=== PATIENT | male | born 1955 | race Caucasian/White ===

== ENCOUNTER → 2022-02-22 09:43 | Outpatient (CLI) | payer BC, SELFPAY ==
--- NOTE | 2022-02-22 | CA_ITS ---
APPROVED REPORT EXAM: Comprehensive 2D, Doppler, and color-flow Echocardiogram Vp Data: MARK Vasquez, RVS Ht: 6 ft 2 in Wt: 266lbs BSA: 2.45 BP: 140/90 mmHg Indications: Murmur, Hx- pericardial window 30years ago, DM, HTN 2D Dimensions IVSd 1.14 cm M: 0.6-1.2 LVEF (Visual) 54.00 % PWd 1.14 cm M: 0.6 - 1.2 LA Volume 77.80 mL LVDd 4.80 cm M: 4.2 - 5.9 LA Volume Index 31.75 mL/m2 (M/F) 16-34 LVDs 3.46 cm M: 2.5 - 4.0 Aortic Root 3.48 cm M: 3.1 - 3.7 Left Atrium 4.53 cm M: 3.0 - 4.0 LVOT 2.05 cm (M/F) 1.5-2.5 M-Mode Dimensions RVDd 3.64 cm (0.9-2.6) LA Diam 4.61 cm (1.9-4.0) LVDd 5.12 cm (3.5-5.7) Ao Diam 3.74 cm (2.0-3.7) LVDs 3.61 cm (3.5-5.7) IVSd 1.06 cm (0.6-1.1) PWd 0.99 cm (0.6-1.1) EF (Teich) 56.10% FS 29.50% EDV (Teich) 124.90 mL ESV (Teich) 54.80 mL LV Diastology E Decel Time 213.00 (160-240 msec) E/A Ratio 0.93 Aortic Valve LVOT Max 128.00 (70-110 cm/s) LVOT VTI 27.23 cm AoV Peak Vadim. 271.00 (50-130 cm/s) AO Peak GR. 29.60 mmHg AO Mean GR. 15.00 (<5 mmHg) AO VTI 51.12 (18-25 cm) ASTON (VTI) 1.76 (2.5-4.5 cm2) Mitral Valve MV A Velocity 114.00 (40-130 cm/s) E/A Ratio 0.93 MV Decel. Time 213.00 (160-240 ms) MV Mean Gr. 3.10 (<2mmHg) MV PHT 63.00 ms Pulmonary Valve PV Peak Velocity 87.00 (50-150 cm/s) WA End VMAX 183.00 cm/s Tricuspid Valve TR P. Velocity 144.00 cm/s Left Ventricle Left atrium is mildly enlarged, left ventricle is normal size mild concentric left ventricular hypertrophy, estimated ejection fraction 55% with no regional wall motion abnormality, diastolic parameters are inconclusive. Right Ventricle Right atrium and right ventricle are normal size and contractility. Aortic Valve Aortic valve is thickened and calcified with restriction in the leaflet mobility, the mean gradient across aortic valve is 17 mmHg, valve area is 1.6 cm, represents mild aortic stenosis, there is no significant aortic insufficiency. Mitral Valve Mitral valve grossly normal, there is trace mitral regurgitation. Tricuspid Valve Tricuspid valve grossly normal, there is trace tricuspid regurgitation, tricuspid regurgitation jet velocity is inadequate for calculation of the right ventricular systolic pressure. Pulmonic Valve Pulmonic valve is poorly visualized. Great Vessels Aortic root is normal size. Inferior vena cava is poorly visualized Pericardium No significant pericardial effusion noted. Conclusion 1. Mildly enlarged left atrium, normal left ventricular size, mild concentric left ventricular hypertrophy, estimated ejection fraction 55% with no regional wall motion abnormality, diastolic parameters are inconclusive. 2. Thickened and calcified aortic valve with mean gradient across aortic valve of 17 mmHg, valve area is 1.6 cm??? represents mild aortic stenosis, there is no significant aortic insufficiency. 3. Trace mitral and tricuspid regurgitation. 4. No significant pericardial effusion noted. 5. Inferior vena cava is poorly visualized Electronically signed by : Manuel Castano MD 02/23/2022 06:17:14
== END ==
PROVIDERS: PCP Internal Medicine Adolescent Medicine; Visit Provider Internal Medicine Adolescent Medicine
DX: R01.1 Cardiac murmur, unspecified (principal)
CPT/HCPCS: 93306

== ENCOUNTER 2023-04-19 09:06 | Emergency (ER) | payer BC, SELFPAY ==
[2023-04-19] VITALS (9 sets, daily range): BP systolic 93–145; BP diastolic 54–82; PULSE 100–130; RESP 15–24; TEMP 37.7; O2SAT 94–98; BMI 34.0
--- NOTE | 2023-04-19 09:16 | PC.NURSE ---
POC glucose checked at BS.
[2023-04-19 09:17] LABS: Coronavirus 19, PCR Not Detected (NotDetected); Influenza A, PCR Not Detected (NotDetected); Influenza B, PCR Not Detected (NotDetected)
--- NOTE | 2023-04-19 09:17 | PC.NURSE ---
Pillow and [place] given to patient for comfort. Spouse at BS. Call campos within reach
[2023-04-19 09:18] LABS: POC Glucose,Bedside 235 (70-110)
--- NOTE | 2023-04-19 09:18 | PC.NURSE ---
Dr. Cross at BS for pt eval
--- NOTE | 2023-04-19 09:21 | CT_ITS ---
PROCEDURE INFORMATION: Exam: CT Chest Without Contrast; Diagnostic Exam date and time: 04/19/2023 10:23 AM Age: 67 years old Clinical indication: Cough and shortness of breath; Additional info: Cough, SOA, tachy TECHNIQUE: Imaging protocol: Diagnostic computed tomography of the chest without contrast. Radiation optimization: All CT scans at this facility use at least one of these dose optimization techniques: automated exposure control; mA and/or kV adjustment per patient size (includes targeted exams where dose is matched to clinical indication); or iterative reconstruction. REPORTING DATA: Count of CT and Cardiac NM exams in prior 12 months: This patient has received 0 known CTs and 0 known cardiac nuclear medicine studies in the 12 months prior to the current study. COMPARISON: CT ABDOMEN PELVIS WO CON 04/19/2023 10:23 AM FINDINGS: Lungs: Unremarkable. No consolidation. No masses. Pleural spaces: Unremarkable. No pneumothorax. No pleural effusion. Heart: Unremarkable. No cardiomegaly. No pericardial effusion. Coronary arteries: Postoperative changes from prior coronary artery bypass graft. Lymph nodes: Unremarkable. No enlarged lymph nodes. Vasculature: Unremarkable. No aortic aneurysm. Bones/joints: Sternotomy wires are intact. Soft tissues: Unremarkable. IMPRESSION: No evidence of pneumonia or interstitial lung disease.
--- NOTE | 2023-04-19 09:21 | CT_ITS ---
PROCEDURE INFORMATION: Exam: CT Abdomen And Pelvis Without Contrast Exam date and time: 04/19/2023 10:23 AM Age: 67 years old Clinical indication: Other: Bilateral flank pain; Additional info: Abd pain, no bm, flank pain b/l TECHNIQUE: Imaging protocol: Computed tomography of the abdomen and pelvis without contrast. Radiation optimization: All CT scans at this facility use at least one of these dose optimization techniques: automated exposure control; mA and/or kV adjustment per patient size (includes targeted exams where dose is matched to clinical indication); or iterative reconstruction. REPORTING DATA: Count of CT and Cardiac NM exams in prior 12 months: This patient has received 0 known CTs and 0 known cardiac nuclear medicine studies in the 12 months prior to the current study. COMPARISON: CT CHEST WO CON 04/19/2023 10:23 AM FINDINGS: Limitations: The absence of intravenous contrast limits the assessment of vascular structures, lesions and lymphadenopathy. Liver: Normal. No mass. Gallbladder and bile ducts: Cholelithiasis noted without pericholecystic fluid/stranding. Pancreas: Normal. No ductal dilation. Spleen: Normal. No splenomegaly. Adrenal glands: Normal. No mass. Kidneys and ureters: [id number] right hydroneureteronephrosis proximal to a 6 x 5 x 5 mm calculus in the proximal ureter. Stomach and bowel: Unremarkable. No obstruction. No mucosal thickening. Appendix: No evidence of appendicitis. Intraperitoneal space: Unremarkable. No free air. No significant fluid collection. Vasculature: Unremarkable. No abdominal aortic aneurysm. Lymph nodes: Unremarkable. No enlarged lymph nodes. Urinary bladder: Unremarkable as visualized. Reproductive: Unremarkable as visualized. Bones/joints: Unremarkable. No acute fracture. Soft tissues: Unremarkable. IMPRESSION: [id number] right hydroneureteronephrosis proximal to a 6 x 5 x 5 mm calculus in the proximal ureter.
--- NOTE | 2023-04-19 09:24 | HMH.EDGENADL ---
Discharge Plan Disposition Patient Disposition: Xfer Short-Term Hosp Condition: Good Prescriptions Prescriptions: No Action metformin 500 mg tablet extended release 24 hr 1,000 mg PO BID 30 Days Qty: 120 atorvastatin 40 mg tablet 40 mg PO QHS 30 Days Qty: 30 levothyroxine 100 mcg tablet 100 mcg PO DAILY 30 Days Qty: 30 glimepiride 4 mg tablet 4 mg PO BID 30 Days Qty: 30 losartan-hydrochlorothiazide 100-25 mg tablet 1 tab PO DAILY Patient Comments: TAKE 1 TABLET BY MOUTH EVERY DAY Soliqua 100/33 100 unit-33 mcg/mL insulin pen 40 unit SQ DAILY Patient Comments: ADMINISTER 60 UNITS UNDER THE SKIN EVERY MORNING Farxiga 10 mg tablet 10 mg PO DAILY Referrals Follow up/Referrals: Bjorn Ybarra MD [Primary Care Provider] - See instructions Activity Restrictions/Add. Instructions Additional Instructions/Restrictions: Please proceed directly to [facility] emergency department. Their address is [address] [place] [address]. You will be seen there in the emergency department for your obstructive stone that is causing kidney failure and infection. Clinical Impressions Clinical Impression: Right ureteral calculus, REBEKA (acute kidney injury), Sepsis Discharge ED Provider: Agata Cross General Adult HPI General Chief complaint: PAIN Stated complaint: fever, cough, body aches, elevated blood sugar Time Seen by Provider: 04/19/23 09:14 History of Present Illness HPI narrative: This patient is a 67-year-old male with history of insulin-dependent diabetes, hypertension, and hypothyroidism presented to the emergency department for evaluation with concern for fever, cough, body aches, bilateral flank pain, and hyperglycemia since Sunday. He also notes that he has not had a bowel movement. He notes his urine is decreased as well, but denies sense of urgency, retention, or other concern. He has been drinking a ton of fluids but feels like he is not staying hydrated. He is not sure when his last BM was, and he does not think he is passing gas. He admits to heart surgery, but denies history of prior abdominal surgeries. In addition to these things, patient complains that his blood sugar has been very high at home and he has had a hard time getting it under control. Related Data Home Medications Medication Instructions Recorded Confirmed atorvastatin 40 mg tablet 40 mg PO QHS 30 days #30 tabs 04/15/18 04/19/23 glimepiride 4 mg tablet 4 mg PO BID 30 days #30 tabs 04/15/18 04/19/23 levothyroxine 100 mcg tablet 100 mcg PO DAILY 30 days #30 tabs 04/15/18 04/19/23 metformin 500 mg tablet,extended 1,000 mg PO BID 30 days #120 tabs 04/15/18 04/19/23 release 24 hr dapagliflozin propanediol 10 mg 10 mg PO DAILY 02/21/22 04/19/23 tablet (Farxiga) insulin glargine 100 40 unit SQ DAILY 02/08/23 04/19/23 unit-lixisenatide 33 mcg/mL subcutaneous pen (Soliqua /33) losartan 100 1 tab PO DAILY 02/08/23 04/19/23 mg-hydrochlorothiazide 25 mg tablet Allergies Allergy/AdvReac Type Severity Reaction Status Date / Time No Known Allergies Allergy Unverified 04/19/23 09:28 [facility] Disclaimer: The information contained in this section may have been updated after the patient was seen, as this information can be updated by other users. Medical History Diabetes mellitus Hypertension Hypothyroidism Social History Smoking Status: Never smoker alcohol intake: never substance use type: denies use current occupational status: employed Travel in the last 8 weeks: None ROS Obtained: Yes All systems reviewed & no additional complaints except as documented Physical Exam General General appearance: alert and obese Comment: Tachycardic with dry mucous membranes, ill-appearing Head Head exam: atraumatic an
--- NOTE | 2023-04-19 09:44 | ECG_ITS ---
APPROVED REPORT Exam: Resting ECG HR:119 bpm ECG Measurements Heart Rate 119 AXES QRSd 110 QRS 113 QT 335 T 30 QTc 406 Conclusion Sinus tachycardia Biatiral abnormality Late r wave progression RAD ABNORMAL ECG UNCONFIRMED REPORT Electronically signed by : Bjorn Ybarra MD 04/20/2023 08:54:28
--- NOTE | 2023-04-19 09:48 | PC.NURSE ---
notified respiratory of vbg order and blood in lab
[2023-04-19 09:55] LABS: VBG Base Excess -5.5 mmol/L (-2.4-2.3); VBG HCO3 19.3 mmol/L (23-30); VBG Oxygen Saturation 92.3 % (50-70); VBG PCO2 31.9 mmol/L (35-51); VBG PO2 57.7 mmol/L (28-40); VBG Total CO2 20.3 mmol/L (23-27)
[2023-04-19 10:03] LABS: Alanine Aminotransferase 21 U/L (12-78); Albumin Level 4.1 g/dl (3.5-5.0); Albumin/Globulin Ratio 1.3 (1.1-1.8); Alkaline Phosphatase 117 U/L (38-126); Aspartate Amino Transferase 25 U/L (17-59); Basophils # 0.1 K/mm3 (0-0.2); Basophils % 0.4 % (0.1-2.0); Bilirubin,Total 0.8 mg/dl (0.2-1.3); Blood Urea Nitrogen 35 mg/dl (9-20); Carbon Dioxide 17 mmol/L (22.0-30.0); Chloride 98 mmol/L (98-107); Creatinine Clearance Estimated 39 mL/min (50-200); Eosinophils # 0.1 K/mm3 (0.0-0.4); Eosinophils % 0.6 % (0.1-12.0); Estimated Glomerular Filt Rate 20 ml/min (>60); GFR (African American) 24 ML/MIN (>60); Globulin 3.1 g/dL (1.3-3.2); Glucose 230 mg/dl (74-100); Hematocrit 48.7 % (42.0-52.0); Lipase 26 U/L (23-300); Lymphocytes # 0.5 K/mm3 (0.7-4.5); Lymphocytes % 3.4 % (10-50); Mean Corpuscular HGB Conc 32.8 g/dL (31.8-35.4); Mean Corpuscular Hemoglobin 28.3 pg (27.0-31.2); Mean Corpuscular Volume 86.2 fl (80-94); Mean Platelet Volume 8.2 fl (7.4-10.4); Monocytes # 0.4 K/mm3 (0.1-1.0); Monocytes % 3.2 % (1.7-9.3); Neutrophils # 12.8 K/mm3 (1.8-7.8); Neutrophils % 92.4 % (37.0-80.0); Platelet Count 205 K/mm3 (142-424); Red Blood Count 5.64 M/mm3 (4.60-6.20); Red Cell Distribution Width 14.7 % (11.5-17.5); Sodium 130 mmol/L (136-145); Total Protein,Serum 7.2 g/dl (6.3-8.2); White Blood Count 13.9 K/mm3 (4.8-10.8)
--- NOTE | 2023-04-19 10:03 | PC.NURSE ---
lab at bedside to obtain the 2nd blood culture
[2023-04-19 10:07] LABS: Lactic Acid 2.3 mmol/L (0.7-2.1); MANUAL DIFFERENTIAL MANUAL DIFFERENTIAL (MANUAL DIFF)
--- NOTE | 2023-04-19 10:12 | HMH.ITSTN ---
Called ER due to GFR being 20. Dr Cross said to do scans without contrast
[2023-04-19 10:19] LABS: Microscopic, Urine URINE MICROSCOPIC (MICROSCOPIC)
[2023-04-19 10:21] LABS: T4 (Thyroxine) 6.8 ug/dl (5.53-11.0)
[2023-04-19 10:22] LABS: Appearance,Urine CLEAR (Clear); Bilirubin,Urine Negative (Negative); Blood, Urine 1+ (Negative); Color,Urine YELLOW (Yellow); Glucose,Urine (UA) 3+ (Negative); Ketones,Urine TRACE (Negative); Leukocyte Esterase,Urine Negative (Negative); Nitrate,Urine Negative (Negative); Protein,Urine TRACE (Negative); Urobilinogen,Urine 0.2 EU/dl (0.2)
[2023-04-19 10:29] LABS: Troponin I < 0.01 ng/ml (0.00-0.034)
[2023-04-19 10:34] LABS: Thyroid Stimulating Hormone 0.49 uIU/mL (0.465-4.68)
[2023-04-19 10:35] LABS: Acetone, Serum (Rapid) None Detected (None Detect)
[2023-04-19 10:56] LABS: RBC,Urine Occasional #/hpf (0-3)
[2023-04-19 10:57] LABS: Bacteria,Urine Trace /lpf
[2023-04-19 11:07] LABS: Lymphocytes % 7 % (10-50); Monocytes % 4 % (2-9); Neutrophils % 89 % (42-76); Platelet Estimate Normal; RBC Morphology Normal; Total Cells Counted 100
--- NOTE | 2023-04-19 12:20 | PC.NURSE ---
Addendum entered by Ciera Galan, EMT 04/19/23 12:21: call placed at 1126 Original Note: called for urology, pt admitted to ER per Dr Lombardo
[2023-04-19 13:49] LABS: Reflex Lactic Add Lactic Reflex
--- NOTE | 2023-04-22 05:30 | PC.NURSE ---
reported positive blood cultures of aerobic and gram+ cocci to Hussain Nieto RN
--- NOTE | 2023-04-22 15:42 | PC.NURSE ---
contacted pt at this time. pt states overall improvement.
== END 2023-04-19 12:33 | disposition short-term general hospital (02) ==
PROVIDERS: Emergency Provider Emergency Medicine; PCP Internal Medicine Adolescent Medicine
DX: A41.9 Sepsis, unspecified organism (principal); N17.9 Acute kidney failure, unspecified; N20.1 Calculus of ureter; I10 Essential (primary) hypertension; E11.9 Type 2 diabetes mellitus without complications
CPT/HCPCS: 36415; 71250; 74176; 80053; 81001; 82009; 82803; 82962; 83605; 83690; 84436; 84443; 84484; 85007; 85025; 87040; 87086; 87636; 93005; 96361; 96365; 96375; 99291; J0131; J0696

== ENCOUNTER 2023-10-22 11:12 | Emergency (ER) | payer BC, SELFPAY ==
[2023-10-22 11:55] VITALS: BP 133/75; PULSE 77; RESP 20; TEMP 36.6; O2SAT 98; BMI 33.3
[2023-10-22 12:09] VITALS: BP 183/86; PULSE 70; PULSE 71; RESP 18; RESP 20; TEMP 36.6; TEMP 36.7; O2SAT 97; O2SAT 98; BMI 33.3; BMI 34.0
--- NOTE | 2023-10-22 12:09 | EXP.UTC ---
Discharge Plan Disposition Patient Disposition: Still a Patient Condition: Good Prescriptions Prescriptions: No Action metformin 500 mg tablet extended release 24 hr 1,000 mg PO BID 30 Days Qty: 120 atorvastatin 40 mg tablet 40 mg PO QHS 30 Days Qty: 30 levothyroxine 100 mcg tablet 100 mcg PO DAILY 30 Days Qty: 30 glimepiride 4 mg tablet 4 mg PO BID 30 Days Qty: 30 losartan-hydrochlorothiazide 100-25 mg tablet 1 tab PO DAILY Patient Comments: TAKE 1 TABLET BY MOUTH EVERY DAY Soliqua 100/33 100 unit-33 mcg/mL insulin pen 40 unit SQ DAILY Patient Comments: ADMINISTER 60 UNITS UNDER THE SKIN EVERY MORNING Farxiga 10 mg tablet 10 mg PO DAILY Referrals Follow up/Referrals: Bjorn Ybarra MD [Primary Care Provider] - See instructions Discharge ED Provider: Erlinda Arambula [facility] General Stated complaint: AO-laceration to upper lip Mode of Arrival: Ambulatory Source of Information: Patient Limitations: No Limitations Time Seen by Provider: 10/22/23 12:09 Description of Symptoms (Recalled from Triage Doc. 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 of farm equipment when it came back and struck him in the upper lip causing laceration to his lip States he put pressure on it and got the bleeding to stop and was going to go back to work but they made him come in Denies any other injury and denies LOC Related Data Home Medications Medication Instructions Recorded Confirmed atorvastatin 40 mg tablet 40 mg PO DAILY 10/22/23 10/22/23 dapagliflozin propanediol 10 mg 10 mg PO DAILY 10/22/23 10/22/23 tablet (Farxiga) finasteride 5 mg tablet 5 mg PO DAILY 10/22/23 10/22/23 insulin glargine 100 60 unit SQ DAILY 10/22/23 10/22/23 unit-lixisenatide 33 mcg/mL subcutaneous pen (Soliqua 100/33) levothyroxine 100 mcg tablet 100 mcg PO DAILY 10/22/23 10/22/23 losartan 100 mg tablet 100 mg PO DAILY 10/22/23 10/22/23 metformin 500 mg tablet,extended 500 mg PO BID 10/22/23 10/22/23 release 24 hr tamsulosin 0.4 mg capsule 0.4 mg PO DAILY 10/22/23 10/22/23 verapamil 180 mg 24 hr 180 mg PO DAILY 10/22/23 10/22/23 capsule,extended release Allergies Allergy/AdvReac Type Severity Reaction Status Date / Time No Known Allergies Allergy Unverified 04/19/23 09:28 Worker's Comp Is this a Worker's Comp case?: No [facility] Disclaimer: The information contained in this section may have been updated after the patient was seen, as this information can be updated by other users. Medical History Diabetes mellitus Hypertension Hypothyroidism Social History Smoking Status: Never smoker alcohol intake: never substance use type: denies use current occupational status: employed Travel in the last 8 weeks: None ROS Obtained: Yes All systems reviewed & no additional complaints except as documented and Yes Systems reviewed as appropriate & no additional complaints except as documented Constitutional Constitutional: Reports system reviewed and no additional complaints, except as documented and Reports as per HPI ENT Ears, Nose, Mouth, and Throat: Reports system reviewed and no additional complaints, except as documented, Reports as per HPI and Reports other (laceration to lip) Cardiovascular Cardiovascular: Reports system reviewed and no additional complaints, except as documented and Reports as per HPI Respiratory Respiratory: Reports system reviewed and no additional complaints, except as documented and Reports as per HPI Gastrointestinal Gastrointestingal: Reports system reviewed and no additional complaints, except as documented and as per HPI Physical Exam General General appearance: alert and in no apparent distress Expanded Head Exam Head image: 1. laceration noted minimal bleeding Respiratory Respiratory exam: Present normal lung sounds bilaterally; Absent respiratory distress or wheezes Cardiovascular Cardiovascular exam: Present regular rate, normal rhythm and normal heart sounds Abdominal Exam Abdominal exam: Present soft and normal bowel sounds; Absent distention or tenderness Neurological Exam Neurological exam: Present alert, oriented X3 and normal gait Medical Decision Making [place] Inquiry Pt receiving controlled substance: No [place] was queried for this patient: No Vital Signs: 10/22/23 11:55 Temperature 97.8 F Temperature Source Oral Pulse Rate [Left Brachial] 77 Respiratory Rate 20 Blood Pressure [Left Arm] 133/75 Blood Pressure Mean [Left Arm] 94 Blood Pressure Source [Left Arm] Automatic Cuff Blood Pressure Position [Left Arm] Sitting 02 Sat by Pulse Oximetry 98 Oxygen Delivery Method Room Air Medical Decision Narrative: Patient has laceration to upper lip with minimal bleeding noted discussed with patient and due to laceration extending into vermilion border therefore recommended transfer to the ED for closure and patient agreed called ED and patient was moved to the ED
--- NOTE | 2023-10-22 12:11 | PC.NURSE ---
PATIENT SENT TO ER PER Swati TAPIA APRN FOR FURTHER EVALUATION. REPORT GIVEN TO DR. ANTUNEZ BY Swati TAPIA APRN. PATIENT AMBULATED TO ER WITH [facility] STAFF ASSIST AT THIS TIME
[2023-10-22 12:30] VITALS: BP 146/75; PULSE 74; O2SAT 96
--- NOTE | 2023-10-22 12:37 | PC.NURSE ---
ED MD AT BEDSIDE
--- NOTE | 2023-10-22 12:42 | ED_ITS ---
Discharge Plan Disposition Patient Disposition: Home, Self-Care Condition: Good Prescriptions Prescriptions: No Action atorvastatin 40 mg tablet 40 mg PO DAILY Patient Comments: TAKE 1 TABLET BY MOUTH EVERY DAY AT BEDTIME levothyroxine 100 mcg tablet 100 mcg PO DAILY Patient Comments: TAKE 1 TABLET BY MOUTH DAILY verapamil 180 mg capsule,ext rel. pellets 24 hr 180 mg PO DAILY Patient Comments: TAKE 1 CAPSULE BY MOUTH DAILY tamsulosin 0.4 mg capsule 0.4 mg PO DAILY losartan 100 mg tablet 100 mg PO DAILY Patient Comments: TAKE 1 TABLET BY MOUTH DAILY metformin 500 mg tablet extended release 24 hr 500 mg PO BID Patient Comments: TAKE 2 TABLETS BY MOUTH TWICE DAILY finasteride 5 mg tablet 5 mg PO DAILY dapagliflozin propanediol [Farxiga] 10 mg tablet 10 mg PO DAILY Patient Comments: TAKE 1 TABLET BY MOUTH EVERY DAY Soliqua 100/33 100 unit-33 mcg/mL insulin pen 60 unit SQ DAILY Patient Comments: INJECT 60 UNITS UNDER THE SKIN EVERY MORNING Referrals Follow up/Referrals: Bjorn Ybarra MD [Primary Care Provider] - See instructions Activity Restrictions/Add. Instructions Additional Instructions/Restrictions: You were seen in the ED today due to lip laceration. Please keep area clean and dry. You may wash with warm water and soap. Dissolvable sutures were used for repair. Follow-up with primary care. Return to the ED if symptoms worsen or if new concerning symptoms arise. Thank you. Clinical Impressions Clinical Impression: Laceration of lip Qualifiers: Encounter type: initial encounter Qualified Code(s): S01.511A - Laceration without foreign body of lip, initial encounter Instructions Patient Instructions: DI for Laceration Repair Discharge ED Provider: Federico Price General Adult HPI General Chief complaint: Wound/Laceration Stated complaint: AO-laceration to upper lip Time Seen by Provider: 10/22/23 12:09 Mode of Arrival: Ambulatory Source of Information: Patient Limitations: No Limitations Description of Symptoms (Recalled from ER Triage Doc. by RN): PATIENT C/O LACERATION TO TOP LEFT LIP AFTER GETTING HIT WITH A BLADE FROM A PIECE OF FARM EQUIPMENT TODAY History of Present Illness HPI narrative: Patient is a 59-year-old male with history of HTN, diabetes who presents due to laceration. Patient states he was working with a metal tool when it kicked back on him, striking him in the face. He denies loss of consciousness. Denies any injury elsewhere. States his pain is controlled at this time. He is unsure when his last tetanus shot was. Related Data Home Medications Medication Instructions Recorded Confirmed atorvastatin 40 mg tablet 40 mg PO DAILY 10/22/23 10/22/23 dapagliflozin propanediol 10 mg 10 mg PO DAILY 10/22/23 10/22/23 tablet (Farxiga) finasteride 5 mg tablet 5 mg PO DAILY 10/22/23 10/22/23 insulin glargine 100 60 unit SQ DAILY 10/22/23 10/22/23 unit-lixisenatide 33 mcg/mL subcutaneous pen (Soliqua /) levothyroxine 100 mcg tablet 100 mcg PO DAILY 10/22/23 10/22/23 losartan 100 mg tablet 100 mg PO DAILY 10/22/23 10/22/23 metformin 500 mg tablet,extended 500 mg PO BID 10/22/23 10/22/23 release 24 hr tamsulosin 0.4 mg capsule 0.4 mg PO DAILY 10/22/23 10/22/23 verapamil 180 mg 24 hr 180 mg PO DAILY 10/22/23 10/22/23 capsule,extended release Allergies Allergy/AdvReac Type Severity Reaction Status Date / Time No Known Allergies Allergy Unverified 04/19/23 09:28 [facility] Disclaimer: The information contained in this section may have been updated after the patient was seen, as this information can be updated by other users. Medical History Diabetes mellitus Hypertension Hypothyroidism Social History Smoking Status: Never smoker alcohol intake: never substance use type: denies use current occupational status: employed Travel in the last 8 weeks: None ROS Obtained: Yes All systems reviewed & no additional complaints except as documented Physical Exam General General appearance: alert and in no apparent distress Head Head exam: atraumatic, normocephalic and normal inspection Eye Eye exam: Present normal appearance, PERRL and EOMI ENT ENT exam: Present normal exam, normal oropharynx, mucous membranes moist, TM's normal bilaterally, normal external ear exam and other (2.5 cm linear laceration through the left upper lip involving vermilion border.) Neck Neck exam: Present normal inspection, full ROM and trachea midline; Absent meningismus or lymphadenopathy Chest Chest inspection: Present normal inspection and symmetric chest wall rise; Absent tenderness Respiratory Respiratory exam: Present normal lung sounds bilaterally; Absent respiratory distress Cardiovascular Cardiovascular exam: Present regular rate and normal rhythm; Absent JVD Abdominal Exam Abdominal exam: Present soft and normal bowel sounds; Absent distention, tenderness or guarding Extremities Exam Extremities exam: Present normal inspection, full ROM and normal capillary refill; Absent calf tenderness Back Exam Back exam: Present normal inspection; Absent tenderness Neurological Exam Neurological exam: Present alert and oriented X3 Psychiatric Psychiatric exam: Present normal affect and normal mood Skin Skin exam: Present warm, dry, intact and normal color Lymphatic Lymphatic Findings: no adenopathy Medical Decision Making Medical Records Medical records reviewed: Yes I reviewed the patient's medical records. [place] Inquiry Pt receiving controlled substance: No Vital Signs: 10/22/23 11:55 10/22/23 12:09 10/22/23 12:09 Temperature 97.8 F 97.8 F 98.0 F Temperature Source Oral Oral Oral Pulse Rate Pulse Rate [Left Brachial] 77 71 70 Respiratory Rate 20 20 18 Blood Pressure Blood Pressure [Left Arm] 133/75 183/86 H 183/86 H Blood Pressure Mean Blood Pressure Mean [Left Arm] 94 118 118 Blood Pressure Source [Left Arm] Automatic Cuff Automatic Cuff Automatic Cuff Blood Pressure Position [Left Arm] Sitting Sitting 02 Sat by Pulse Oximetry 98 97 98 Oxygen Delivery Method Room Air Room Air Room Air 10/22/23 12:30 Temperature Temperature Source Pulse Rate 74 Pulse Rate [Left Brachial] Respiratory Rate Blood Pressure 146/75 H Blood Pressure [Left Arm] Blood Pressure Mean 106 Blood Pressure Mean [Left Arm] Blood Pressure Source [Left Arm] Blood Pressure Position [Left Arm] 02 Sat by Pulse Oximetry 96 Oxygen Delivery Method Orders (Tests/Meds): ED MEDICATIONS Discontinued Medications Generic Name Dose Route Start Last Admin Trade Name Freq PRN Reason Stop Dose Admin Lidocaine HCl 15 ml 10/22/23 12:54 10/22/23 12:55 Lidocaine 1% 20ml Mdv SQ 10/22/23 12:55 15 ml ONCE ONE Administration Tetanus/Reduced Diphtheria/Acell Pertussis 0.5 ml 10/22/23 12:43 10/22/23 13:15 Tet/Diphth/Pert-Adult 0.5ml Syringe IM 10/22/23 12:44 0.5 ml .ONCE ONE Administration Medical Decision Narrative: In summary, patient is 67-year-old male, evaluated in the emergency department today due to patient laceration. On arrival, patient is hemodynamically stable. On examination, patient has laceration through left upper lip. Differential diagnosis includes but is not limited to simple laceration, contaminated wound, foreign body. Patient given tetanus booster. Wound irrigated thoroughly at bedside and repaired with 5-0 fast gut sutures. Patient tolerated procedure well. He is appropriate for discharge at this time. Patient counseled on home care, given strict return precautions and agreeable to plan. I considered the utility of obtaining imaging, but decided against this because this would be of little benefit. I considered the utility of treatment with prescription for antibiotics, but decided against this because this would be of little benefit. Procedures Laceration Laceration 1: Site: lip Side (If applicable): left Size (cm): 2.5 Description: linear and involves kendra border Depth: simple, single layer Local Anesthetic: lidocaine 1% Amount of anesthesia used (mL): 1 Pre-repair: wound explored, irrigated extensively and deep structures intact Skin layer closed with: other (Fast gut) Size (cm): 5-0 Number of sutures: 6 Technique: simple, interrupted Critical Care Critical Care Time Critical Care Time: No
[2023-10-22] MEDS: LIDOCAINE 1% 20ML MDV 15 ML SQ (12:55)
[2023-10-22] MEDS: TET/DIPHTH/PERT-ADULT 0.5ML SYRINGE 0.5 ML IM (13:15)
[2023-10-22 13:20] VITALS: BP 184/85; PULSE 78; RESP 18; TEMP 36.7; O2SAT 98
== END 2023-10-22 13:20 | disposition home or self-care (01) ==
LOC: UTC 11:16 → ER 12:10
PROVIDERS: Emergency Provider Student in an Organized Health Care Education/Training Program; PCP Internal Medicine Adolescent Medicine
DX: S01.511A Laceration without foreign body of lip, initial encounter (principal); E11.9 Type 2 diabetes mellitus without complications; I10 Essential (primary) hypertension; E03.9 Hypothyroidism, unspecified; Z79.4 Long term (current) use of insulin; Z79.84 Long term (current) use of oral hypoglycemic drugs; W27.0XXA Contact with workbench tool, initial encounter; Z23 Encounter for immunization
CPT/HCPCS: 12011; 90471; 90715; 99283

== ENCOUNTER 2024-05-02 08:10 | Outpatient (CLI) | payer BC, SELFPAY ==
[2024-05-02 08:45] LABS: Hemoglobin A1C 7.9 % (4.0-6.0)
[2024-05-02 09:05] LABS: Alanine Aminotransferase 20 U/L (12-78); Albumin Level 4.4 g/dl (3.5-5.0); Albumin/Globulin Ratio 1.9 (1.1-1.8); Alkaline Phosphatase 79 U/L (38-126); Anion Gap 13.7 mEq/L (5-15); Aspartate Amino Transferase 22 U/L (17-59); Bilirubin,Total 0.6 mg/dl (0.2-1.3); Blood Urea Nitrogen 29 mg/dl (9-20); Calcium 9.5 mg/dl (8.4-10.2); Carbon Dioxide 27 mmol/L (22.0-30.0); Chloride 108 mmol/L (98-107); Chol/HDL Ratio 3.2 (1-3.5); Cholesterol 162 mg/dl (140-200); Estimated Glomerular Filt Rate 50 ml/min (>60); GFR (African American) 61 ML/MIN (>60); Globulin 2.3 g/dL (1.3-3.2); Glucose 145 mg/dl (74-100); HDL Cholesterol 50 mg/dl (40-60); Potassium 4.7 mmoL/L (3.5-5.1); Sodium 144 mmol/L (136-145); Total Protein,Serum 6.7 g/dl (6.3-8.2); Triglycerides 115 mg/dl (30-150); VLDL Cholesterol 23 mg/dL (0-40)
[2024-05-02 09:16] LABS: Direct LDL Cholesterol 84.93 mg/dL (100-129)
[2024-05-02 09:23] LABS: Free Thyroxine Index 3.1 ug/dL (5.93-13.13); T4 (Thyroxine) 8.6 ug/dl (5.53-11.0); Triiodothryronine (T3) Uptake 36 % (23.5-40.5)
[2024-05-02 09:36] LABS: Thyroid Stimulating Hormone 2.18 uIU/mL (0.465-4.68)
== END 2024-05-02 23:59 | disposition home or self-care (01) ==
LOC: LAB 08:11
PROVIDERS: PCP Internal Medicine Adolescent Medicine; Visit Provider Internal Medicine Adolescent Medicine
DX: E03.9 Hypothyroidism, unspecified (principal); E78.01 Familial hypercholesterolemia; E11.65 Type 2 diabetes mellitus with hyperglycemia; Z79.4 Long term (current) use of insulin; Z79.84 Long term (current) use of oral hypoglycemic drugs
CPT/HCPCS: 36415; 80053; 80061; 83036; 84436; 84443; 84479

== ENCOUNTER 2024-05-04 14:21 | Emergency (ER) | payer BC, SELFPAY ==
[2024-05-04 15:40] VITALS: BP 155/88; PULSE 68; RESP 17; TEMP 37; O2SAT 98; BMI 34.7
--- NOTE | 2024-05-04 15:47 | XR_ITS ---
PROCEDURE INFORMATION: Exam: XR Right Hand Exam date and time: 05/04/2024 3:58 PM Age: 68 years old Clinical indication: Injury or trauma; Fall; Blunt trauma (contusions or hematomas); Hand; Right; Additional info: Fall. Laceration on palm of hand. TECHNIQUE: Imaging protocol: Radiologic exam of the right hand. Views: 3 or more views. Total images: 3 COMPARISON: No relevant prior studies available. FINDINGS: Bones/joints: No evidence of acute fracture or dislocation. Soft tissues: Mild soft tissue swelling. No evidence of radiopaque foreign bodies. IMPRESSION: 1. No evidence of acute fracture or dislocation. 2. Mild soft tissue swelling. 3. No evidence of radiopaque foreign bodies.
--- NOTE | 2024-05-04 16:07 | ED_ITS ---
Discharge Plan Disposition Patient Disposition: Home, Self-Care Condition: Good Prescriptions Prescriptions: New cephalexin 500 mg tablet 500 mg PO BID 10 Days Qty: 20 0RF mupirocin 2 % ointment 1 applic topical BID Qty: 15 0RF No Action (DME) Accu-Chek Lisa Plus test strp Strip See Rx Instructions .ROUTE .MEDSUPPLY Qty: 10 Patient Comments: USE DIRECTED FOR DIABETIC TESTING THREE TIMES DAILY Rx Instructions: As directed atorvastatin 40 mg tablet 40 mg PO HS Patient Comments: TAKE 1 TABLET BY MOUTH ONCE DAILY AT BEDTIME levothyroxine 100 mcg tablet 100 mcg PO DAILY Patient Comments: TAKE 1 TABLET BY MOUTH DAILY verapamil 180 mg capsule,ext rel. pellets 24 hr 180 mg PO DAILY Patient Comments: TAKE 1 CAPSULE BY MOUTH DAILY tamsulosin 0.4 mg capsule 0.4 mg PO DAILY glimepiride 4 mg tablet 4 mg PO DAILY Patient Comments: TAKE 1 TABLET BY MOUTH TWICE DAILY losartan 100 mg tablet 100 mg PO DAILY Patient Comments: TAKE 1 TABLET BY MOUTH DAILY metformin 500 mg tablet extended release 24 hr 500 mg PO DAILY Patient Comments: TAKE 2 TABLETS BY MOUTH TWICE DAILY finasteride 5 mg tablet 5 mg PO DAILY dapagliflozin propanediol [Farxiga] 10 mg tablet 10 mg PO DAILY Patient Comments: TAKE 1 TABLET BY MOUTH EVERY DAY Soliqua 100/33 100 unit-33 mcg/mL insulin pen 60 unit SQ AM Patient Comments: ADMINISTER 60 UNITS UNDER THE SKIN EVERY MORNING Referrals Follow up/Referrals: Bjorn Ybarra MD [Primary Care Provider] - See instructions Activity Restrictions/Add. Instructions Additional Instructions/Restrictions: Keep area clean and dry Monitor for signs and symptoms of infection Antibiotics as ordered Clean area,, apply cream Return if symptoms worsen or do not improve Clinical Impressions Clinical Impression: Laceration Instructions Patient Instructions: DI for Laceration Repair-Skin Glue Print Language Print Language: Thai Discharge ED Provider: Demetrius ([facility] [facility] [place] General Stated complaint: AO laceration on right hand Mode of Arrival: Ambulatory Source of Information: Patient Limitations: No Limitations Time Seen by Provider: 05/04/24 15:53 Description of Symptoms (Recalled from Triage Doc. 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 Patient states he is up-to-date with his tetanus. Related Data Home Medications ?Medication ?Instructions ?Recorded ?Confirmed blood sugar diagnostic (Accu-Chek #10 ea 02/04/24 05/04/24 Lisa Plus test strips) atorvastatin 40 mg tablet 40 mg PO HS 05/04/24 05/04/24 dapagliflozin propanediol 10 mg 10 mg PO DAILY 05/04/24 05/04/24 tablet (Farxiga) finasteride 5 mg tablet 5 mg PO DAILY 05/04/24 05/04/24 glimepiride 4 mg tablet 4 mg PO DAILY 05/04/24 05/04/24 insulin glargine 100 60 unit SQ AM 05/04/24 05/04/24 unit-lixisenatide 33 mcg/mL subcutaneous pen (Soliqua 100/33) levothyroxine 100 mcg tablet 100 mcg PO DAILY 05/04/24 05/04/24 losartan 100 mg tablet 100 mg PO DAILY 05/04/24 05/04/24 metformin 500 mg tablet,extended 500 mg PO DAILY 05/04/24 05/04/24 release 24 hr tamsulosin 0.4 mg capsule 0.4 mg PO DAILY 05/04/24 05/04/24 verapamil 180 mg 24 hr 180 mg PO DAILY 05/04/24 05/04/24 capsule,extended release Previous Rx's ?Medication ?Instructions ?Recorded cephalexin 500 mg tablet 500 mg PO BID 10 days #20 tabs 05/04/24 mupirocin 2 % topical ointment 1 applic topical BID #15 grams 05/04/24 Allergies Allergy/AdvReac Type Severity Reaction Status Date / Time No Known Allergies Allergy Unverified 02/04/24 08:25 Worker's Comp Is this a Worker's Comp case?: No [facility] Disclaimer: The information contained in this section may have been updated after the patient was seen, as this information can be updated by other users. Medical History , DATE NIGHT CAREGIVER) Diabetes mellitus Hypothyroidism Hypertension Surgical History , DATE NIGHT CAREGIVER) No significant past surgical history Social History , DATE NIGHT CAREGIVER) Smoking Status: Never smoker alcohol intake: never substance use type: denies use current occupational status: employed Travel in the last 8 weeks: None ROS Obtained: Yes Systems reviewed as appropriate & no additional complaints except as documented Physical Exam General General appearance: alert and in no apparent distress Respiratory Respiratory exam: Present normal lung sounds bilaterally Cardiovascular Cardiovascular exam: Present regular rate and normal rhythm Expanded Upper Extremity Exam Right: Hand L/R front image: 2 1. laceration 2. laceration Neurological Exam Neurological exam: Present alert and oriented X3 Psychiatric Psychiatric exam: Present normal affect Skin Skin exam: Present warm and other Medical Decision Making Medical Records Medical records reviewed: Yes I reviewed the patient's medical records. Screening: Per USPSTF and CDC recommendations, given the prevalence of disease in our region, it is our hospital?s policy to screen for HIV and viral Hepatitis for all patients aged 18 and over and those with ongoing risk factors. R[place] Inquiry Pt receiving controlled substance: No Rigo was queried for this patient: No Vital Signs: 05/04/24 15:40 Temperature 98.6 F Temperature Source Oral Pulse Rate [Left Brachial] 68 Respiratory Rate 17 Blood Pressure [Left Arm] 155/88 H Blood Pressure Mean [Left Arm] 110 Blood Pressure Source [Left Arm] Automatic Cuff Blood Pressure Position [Left Arm] Sitting 02 Sat by Pulse Oximetry 98 Oxygen Delivery Method Room Air Orders (Tests/Meds): ORDERS Category Date Time Status XR hand RT min 3V Stat Exams 05/04/24 15:47 Ordered Radiology Data #1: Image(s): Hand Image Reviewed: Yes I reviewed the patient's radiology image Preliminary Findings: Normal/NAD Procedures Laceration Laceration 1: Site: hand Side (If applicable): right Size (cm): 2 Description: linear and flap Pre-repair: wound explored and irrigated extensively Skin layer closed with: Dermabond and other (Steri-Strips)
[2024-05-04 16:15] VITALS: BP 155/88; PULSE 68; RESP 17; TEMP 37; O2SAT 98
== END 2024-05-04 16:17 | disposition home or self-care (01) ==
PROVIDERS: Emergency Provider Nurse Practitioner Family; PCP Internal Medicine Adolescent Medicine
DX: S65.311A Laceration of deep palmar arch of right hand, initial encounter (principal); W19.XXXA Unspecified fall, initial encounter
CPT/HCPCS: 12001; 73130; 99214; G0382